=== PATIENT | male | born 1965 | race Caucasian/White ===

== ENCOUNTER → 2022-07-17 | Outpatient (CLI) | payer OTHER ==
[~2022-07-17] MED LIST: GLIP2.5T6; NITR0.4S; PRIL40CA; PRIN10TA; SIMV40TA2; WELL75TA; [UNRECOGNIZED DRUG - CODE]; lovaza
== END ==
LOC: M SOG 13:03
PROVIDERS: ATTEND Orthopaedic Surgery
DX: M24.412 Recurrent dislocation, left shoulder (principal); M19.012 Primary osteoarthritis, left shoulder